=== PATIENT | female | born 1995 | race Caucasian/White ===

== ENCOUNTER 2017-08-03 22:19 | Emergency (ER) | payer OTHER ==
[~2017-08-03] VITALS: Ht 162.6 cm; Wt 89.5 kg
[2017-08-03 22:36] VITALS: Ht 162.6 cm; Wt 89.5 kg
--- NOTE | 2017-08-04 02:16 | ERA ---
ER Documentation Chief Complaint Date/Time DATE: 08/04/17 TIME: 02:14 Chief Complaint bitten by a dog today, lac on her R wrist HPI Otherwise healthy 22-year-old female presenting one hour status post dog bite to the right forearm. Patient denies any numbness, tingling, loss of range of motion. Tetanus status unknown. States that the dog probably has all vaccinations as it is her friends who she knows. Dog has not been acting abnormally lately. No injury to other areas of the body. Patient has no other complaints and describes no other associated manifestations. Nursing notes have been reviewed and are consistent with history given. ROS All systems reviewed and are negative except as per history of present illness. Medications Home Meds Active Scripts Amoxicillin/Potassium Clav (Amox-Clav 875-125 mg Tablet) 875-125 mg Tab, 1 TAB PO BID, #20 TAB Prov:NEVA RANDALL PA-C 08/05/17 Hydrocodone/Acetaminophen ([place] 5-325 Tablet) 1 Each Tablet, 1 TAB PO Q6H Y for PAIN, #7 TAB Prov:SOL LEON PA-C 08/04/17 Allergies Allergies: Coded Allergies: No Known Allergy (Unverified , 08/03/17) PMhx/Soc Medical and Surgical Hx: pt denies Medical Hx, pt denies Surgical Hx Hx Alcohol Use: No Hx Substance Use: No Hx Tobacco Use: No Smoking Status: Never smoker Physical Exam Vitals Physical Exam Const: Overweight 22-year-old female no acute distress Head: Atraumatic Eyes: Normal Conjunctiva ENT: Normal External Ears, Nose and Mouth. Neck: Full range of motion..~ No meningismus. Resp: Clear to auscultation bilaterally Cardio: Regular rate and rhythm, no murmurs Abd: Soft, non tender, non distended. Normal bowel sounds Skin: 3 lacerations that are 3 cm in length at the distal right forearm. One posterior one lateral and one anterior. Posterior laceration does not reach subcutaneous tissue and will be repaired with Steri-Strips. Back: No midline or flank tenderness Ext: As noted in skin exam Neur: Awake and alert Psych: Normal Mood and Affect Results 24 hrs Current Medications Medications (Trade) Dose Ordered Sig/Jason Route PRN Reason Start Time Stop Time Status Last Admin Dose Admin Diphtheria/ Tetanus/Acell Pertussis (Adacel) 0.5 ml ONCE ONCE IM* 08/04/17 02:30 08/04/17 02:31 DC 08/04/17 02:35 Procedures/MDM 22-year-old female presenting one hour status post dog bite to the right forearm as described in the history and physical examination. Tetanus status unknown. Tetanus shot was given. Patient has refused antibiotics despite adequate education. However patient is requesting pain medications. Lacerations were irrigated with normal saline by the nursing staff. Lidocaine without epi was used to anesthetize the area. No foreign bodies with palpation of the laceration. No need for imaging at this time. 4 simple sutures were placed with 4-0 nylon in each of the 3 wounds without complication. Neurovascularly intact before and after the procedure. Bacitracin was applied to the wounds and bandaged by the nursing staff. I have spoke with the patient regarding their condition and future management including the necessity to follow-up in 2 days since she has refused antibiotics. They have verbally responded that they understand their status and treatment plan. The patients vitals are stable, and their current condition is appropriate for discharge. The patient will be given discharge instructions with return precautions. Departure Diagnosis: Primary Impression: Bite wound Condition: Stable Additional Instructions: You were seen in the emergency department for your laceration which has been closed. Your wound has been cleaned and covered with antibiotic ointment. Please keep this dressing on for 12 hours. After 12 hours take the dressing down and gently clean the wound with ONLY soap and water. If you were given antibiotics, complete the course of treatment as prescribed. Look for signs of infection such as increasing redness, swelling, pain or drainage of pus (yellow/ green fluid). If you see signs of infection, please return to the emergency department immediately. If there are no signs of infection, cover your wound with antibiotic ointment and reapply a dressing. You will form a scar. To keep from scarring too dark, keep your wound covered and out of the sun for the next 6-12 months. Consider using OTC anti-scar creams such as Mederma. Return to the ED for a wound check in 2 days and again for suture removal in 7-10 days. Comments DOS: 08/04/2017 SOL LEON PA-C Aug 04, 2017 02:16
[2017-08-04] MEDS ORDERED: DIPHTH/TET/ACEL PERTUSS (ADULT) 0.5 ML VIAL IM* ONE (02:30)
[2017-08-04] MEDS ORDERED: HYDR-906 PO (04:15)
[2017-08-05] MEDS ORDERED: AMOX1TAB10 PO (19:45)
== END 2017-08-04 04:24 | disposition home or self-care (01) ==
LOC: FTE 22:19
DX: S51.851A Open bite of right forearm, initial encounter (principal); W54.0XXA Bitten by dog, initial encounter; Y92.9 Unspecified place or not applicable; Z23 Encounter for immunization
CPT/HCPCS: 90471; 90715; Z7502

== ENCOUNTER 2017-08-05 18:39 | Emergency (ER) | payer OTHER ==
[~2017-08-05] VITALS: Ht 160 cm; Wt 89.0 kg
[~2017-08-05 18:39] MED LIST: HYDR-906 PO
[2017-08-05 18:44] VITALS: Ht 160 cm; Wt 89.0 kg
[2017-08-05] MEDS ORDERED: AMOX1TAB10 PO (19:45)
--- NOTE | 2017-08-05 19:54 | ERD ---
ER Documentation Chief Complaint Date/Time DATE: 08/05/17 TIME: 19:52 Chief Complaint wound check right arm HPI 22-year-old female is here for 2 day wound check for a laceration secondary to dog bite on her right wrist was done here 2 days ago. She is taking [place] for pain which helps but sometimes she gets sharp shooting pain up her right extremity. Denies any numbness or tingling. Denies any bleeding or drainage. No fever. ROS All systems reviewed and are negative except as per history of present illness. Medications Home Meds Active Scripts Amoxicillin/Potassium Clav (Amox-Clav 875-125 mg Tablet) 875-125 mg Tab, 1 TAB PO BID, #20 TAB Prov:NEVA RANDALL PA-C 08/05/17 Hydrocodone/Acetaminophen ([place] 5-325 Tablet) 1 Each Tablet, 1 TAB PO Q6H Y for PAIN, #7 TAB Prov:SOL LEON PA-C 08/04/17 Allergies Allergies: Coded Allergies: No Known Allergy (Unverified , 08/03/17) PMhx/Soc History of Surgery: No Anesthesia Reaction: No Hx Neurological Disorder: No Hx Respiratory Disorders: No Hx Cardiac Disorders: No Hx Psychiatric Problems: No Hx Miscellaneous Medical Probl: No Hx Alcohol Use: No Hx Substance Use: No Hx Tobacco Use: No Smoking Status: Never smoker FmHx Family History: No diabetes Physical Exam Vitals Vital Signs Date Time Temp Pulse Resp B/P Pulse Ox O2 Delivery O2 Flow Rate FiO2 08/05/17 18:44 99.3 96 20 153/82 100 Physical Exam Const: [] Head: Atraumatic Eyes: Normal Conjunctiva ENT: Normal External Ears, Nose and Mouth. Neck: Full range of motion..~ No meningismus. Resp: Clear to auscultation bilaterally Cardio: Regular rate and rhythm, no murmurs Abd: Soft, non tender, non distended. Normal bowel sounds Skin: Right wrist is swollen and mildly erythematous with tenderness to palpation and mild warmth throughout, healing lacerations with sutures in place , pedal pulses 2+, able to make a fist, no bony abnormalities Results 24 hrs Current Medications Medications (Trade) Dose Ordered Sig/Jason Route PRN Reason Start Time Stop Time Status Last Admin Dose Admin Cefazolin Sodium (Ancef) 1 gm ONCE ONCE IM 08/05/17 20:00 08/05/17 20:01 Procedures/MDM Patient is here for 2 day wound check. She was seen here for dog bite which was repaired it does now feel to be infected and she states she was not given antibiotics. She was given a tetanus shot however. Therefore I gave her Ancef IM here and discharged her with Augmentin and she should return in another 2 days for a wound check or sooner if symptoms worsen. Patient counseled regarding my diagnostic impression and care plan. Prior to discharge all questions answered. Pt agrees with treatment plan and understands strict return precautions. Pt is instructed to follow up with primary care provider within 24- 48 hours. Precautionary instructions provided including instructions to return to the ER if not improving or for any worsening or changing symptoms or concerns. Departure Diagnosis: Primary Impression: Bite wound Additional Impression: Cellulitis Condition: Stable Patient Instructions: Animal Bite, General Additional Instructions: Llame al doctor MAISABELLE y [place] PARA DENTRO DE 1-2 SANCHEZ.Dgale a la secretaria que nosotros le instruimos hacer esta soha.Avise o llame si [place] condicin se empeora antes de la soha. Regresa aqui si peor o no mejor. NEVA RANDALL PA-C Aug 05, 2017 19:54
[2017-08-05] MEDS ORDERED: CEFAZOLIN 1 GM INJ IM ONE (20:00)
== END 2017-08-05 20:14 | disposition home or self-care (01) ==
LOC: FTE 18:39
DX: L03.113 Cellulitis of right upper limb (principal); W54.0XXD Bitten by dog, subsequent encounter
CPT/HCPCS: 96372; J0690; Z7502

== ENCOUNTER 2017-08-16 18:02 | Emergency (ER) | payer SELFPAY ==
[~2017-08-16 18:02] MED LIST changes: +AMOX1TAB10 PO
== END 2017-08-16 21:09 | disposition left against medical advice (07) ==
LOC: E/R 18:02
DX: Z53.21 Procedure and treatment not carried out due to patient leaving prior to being seen by health care provider (principal)

== ENCOUNTER 2017-08-19 16:18 | Emergency (ER) | payer OTHER ==
[~2017-08-19] VITALS: Ht 157.5 cm; Wt 91.5 kg
[2017-08-19 16:20] VITALS: Ht 157.5 cm; Wt 91.5 kg
--- NOTE | 2017-08-19 17:09 | ERD ---
ER Documentation Chief Complaint Chief Complaint Patient here for a suture removal HPI 82-year-old female presents first for laceration sustained from a dog bite 2-1/ 2 weeks ago. She has had no pain at the site and no other complications. No drainage. Good wrist motion. ROS All systems reviewed and are negative except as per history of present illness. Medications Home Meds Active Scripts Amoxicillin/Potassium Clav (Amox-Clav 875-125 mg Tablet) 875-125 mg Tab, 1 TAB PO BID, #20 TAB Prov:NEVA RANDALL PA-C 08/05/17 Hydrocodone/Acetaminophen ([place] 5-325 Tablet) 1 Each Tablet, 1 TAB PO Q6H Y for PAIN, #7 TAB Prov:SOL LEON PA-C 08/04/17 Allergies Allergies: Coded Allergies: No Known Allergy (Unverified , 08/03/17) PMhx/Soc History of Surgery: No Anesthesia Reaction: No Hx Neurological Disorder: No Hx Respiratory Disorders: No Hx Cardiac Disorders: No Hx Psychiatric Problems: No Hx Miscellaneous Medical Probl: No Hx Alcohol Use: No Hx Substance Use: No Hx Tobacco Use: No Physical Exam Vitals Vital Signs Date Time Temp Pulse Resp B/P Pulse Ox O2 Delivery O2 Flow Rate FiO2 08/19/17 16:20 98.3 79 20 138/63 99 Physical Exam Const: [] No distress Ext: No cyanosis, or edema. Well-healing lacerations with some keloiding to right wrist. Sutures clean dry intact. No signs of infection. Procedures/MDM Uncomplicated suture removal from right wrist. No signs of infection. Discharge with primary care follow-up in 2-3 days. Note: 3 small lacerations to right wrist with approximately 14 sutures. Area was cleaned with alcohol and using suture scissors and forceps were easily removed. No complications. Patient tolerated procedure well. Departure Diagnosis: Primary Impression: Encounter for removal of sutures Condition: Stable Patient Instructions: Suture Removal, No Complication Referrals: LEONARD ANDRADE MD (PCP) Additional Instructions: Call your primary care doctor TOMORROW for an appointment during the next 2-3 days.See the doctor sooner or return here if your condition worsens before your appointment time. NORBERTO SULLIVAN DO Aug 19, 2017 17:09
== END 2017-08-19 17:52 | disposition home or self-care (01) ==
LOC: E/R 16:18
DX: Z48.02 Encounter for removal of sutures (principal)
CPT/HCPCS: 99281